=== PATIENT | male | born 1965 | race Caucasian/White ===

== ENCOUNTER → 2016-12-01 | Outpatient (CLI) | payer OTHER ==
[2016-12-01 10:49] LABS: CH 32.8; HCT 37.9 % (39.0-53.0); HDW 2.79; HGB 13.1 gm/dL (13.0-17.5); MCH 33.5 pg (25.0-35.0); MCHC 34.5 g/dL (31.0-37.0); Mean Platelet Volume 8.2; RBC 3.91 m/uL (4.30-5.90); RDW 13.7 % (11.5-15.5)
[2016-12-01 11:08] LABS: ALT 31 U/L (21-72); AST 18 U/L (17-59); Alkaline Phosphatase 81 U/L (38-126); Anion Gap 11 mmol/L; Blood Urea Nitrogen 12 mg/dL (9-20); Calcium 9.5 mg/dL (8.4-10.2); Carbon Dioxide 25 mmol/L (22-30); Chloride 105 mmol/L (98-107); Cholesterol 147 mg/dL (<200); Glucose 97 mg/dL (74-99); HDL Cholesterol 46 mg/dL (40-60); Non-African American GFR(MDRD) 53 (>60 ml/min/1.73 sqM); Potassium 3.8 mmol/L (3.5-5.1); Sodium 141 mmol/L (137-145); Total Bilirubin 0.6 mg/dL (0.2-1.3); Total Protein 7.2 g/dL (6.3-8.2); Triglycerides 117 mg/dL (<150)
== END | disposition home or self-care (01) ==
LOC: LABWHC1 10:18
PROVIDERS: ATTEND Internal Medicine
DX: E78.2 Mixed hyperlipidemia (principal); K21.0 Gastro-esophageal reflux disease with esophagitis; I11.9 Hypertensive heart disease without heart failure
CPT/HCPCS: 36415; 80053; 80061; 85027

== ENCOUNTER → 2017-01-20 | Outpatient (CLI) | payer OTHER ==
[2017-01-20 13:18] LABS: Anion Gap 11 mmol/L; Blood Urea Nitrogen 19 mg/dL (9-20); Calcium 9.6 mg/dL (8.4-10.2); Carbon Dioxide 25 mmol/L (22-30); Chloride 106 mmol/L (98-107); Glucose 107 mg/dL (74-99); Non-African American GFR(MDRD) 58 (>60 ml/min/1.73 sqM); Potassium 4.8 mmol/L (3.5-5.1); Sodium 142 mmol/L (137-145)
[2017-01-20 13:20] LABS: Basophils % (A) 1 %; CH 32.7; CHCM 33.3; Eosinophils % (A) 4 %; HCT 43.9 % (39.0-53.0); HDW 2.48; HGB 14.3 gm/dL (13.0-17.5); Luc % (Auto) 2; Lymphocytes # (A) 1.7 k/uL (1.0-4.8); Lymphocytes % (A) 17 %; MCH 32.1 pg (25.0-35.0); MCHC 32.5 g/dL (31.0-37.0); MCV 98.8 fL (80.0-100.0); Mean Platelet Volume 6.8; Monocytes # (A) 0.5 k/uL (0-1.0); Monocytes % (A) 5 %; Neutrophils # (A) 6.9 k/uL (1.3-7.7); Neutrophils % (A) 71 %; RBC 4.44 m/uL (4.30-5.90); RDW 13.4 % (11.5-15.5); WBC 9.8 k/uL (3.8-10.6); WBC (Perox) 9.86
[2017-01-20 13:21] LABS: Basophils # (A) 0.1 k/uL (0-0.2); Eosinophils # (A) 0.4 k/uL (0-0.7); Luc # (Auto) 0.21
[2017-01-20 13:22] LABS: Appearance,Urine Clear (Clear); Bilirubin,Urine Negative (Negative); Glucose,Urine (UA) Negative (Negative); Ketones,Urine Negative (Negative); Leukocyte Esterase,Urine Negative (Negative); Mucus,Urine Occasional /hpf; Nitrite,Urine Negative (Negative); Particle Count 2272; Protein,Urine Negative (Negative); RBC,Urine 4 /hpf (0-5); Specific Gravity,Urine 1.015 (1.001-1.035); UA Billing (MACRO vs. MICRO) MICRO; Urobilinogen,Urine <2.0 mg/dL (<2.0); WBC,Urine 1 /hpf (0-5)
[2017-01-20 13:23] LABS: Partial Thromboplastin Time 24.4 sec (22.0-30.0); Prothrombin Time 10.6 sec (9.0-12.0)
== END | disposition home or self-care (01) ==
LOC: LABWHC1 12:24
PROVIDERS: ATTEND Internal Medicine
DX: Z01.812 Encounter for preprocedural laboratory examination (principal)
CPT/HCPCS: 36415; 80048; 81001; 85025; 85610; 85730

== ENCOUNTER → 2017-05-06 | Outpatient (CLI) | payer OTHER ==
--- NOTE | 2017-05-06 09:21 | XR ---
EXAMINATION TYPE: XR chest 2V DATE OF EXAM: 05/06/2017 COMPARISON: Prior chest x-ray 03/03/2015 HISTORY: Wellness check TECHNIQUE: Frontal and lateral views of the chest are obtained. FINDINGS: There is no focal air space opacity, pleural effusion, or pneumothorax seen. The cardiac silhouette size is within normal limits. NG tube has been removed. Lung volumes are prominent which c ould be indicative of COPD. Postop changes noted to the anterior abdominal wall. The osseous structur es are intact. IMPRESSION: No acute cardiopulmonary process.
[2017-05-06 09:22] LABS: CH 32.3; CHCM 34.1; HDW 2.56; HGB 13.9 gm/dL (13.0-17.5); MCH 32.4 pg (25.0-35.0); MCV 95.3 fL (80.0-100.0); Mean Platelet Volume 6.9; RDW 13.7 % (11.5-15.5); WBC 11.1 k/uL (3.8-10.6)
[2017-05-06 10:34] LABS: ALT 31 U/L (21-72); AST 23 U/L (17-59); Alkaline Phosphatase 106 U/L (38-126); Anion Gap 9 mmol/L; Blood Urea Nitrogen 14 mg/dL (9-20); Calcium 9.3 mg/dL (8.4-10.2); Carbon Dioxide 24 mmol/L (22-30); Chloride 105 mmol/L (98-107); Cholesterol 147 mg/dL (<200); Glucose 100 mg/dL (74-99); HDL Cholesterol 44 mg/dL (40-60); Non-African American GFR(MDRD) 58 (>60 ml/min/1.73 sqM); Potassium 4.2 mmol/L (3.5-5.1); Sodium 138 mmol/L (137-145); Total Bilirubin 0.4 mg/dL (0.2-1.3); Total Protein 6.6 g/dL (6.3-8.2)
[2017-05-06 10:55] LABS: Prostate Specific Antigen 0.59 ng/mL (0.00-4.00)
== END | disposition home or self-care (01) ==
LOC: RADXRMAIN 08:32
PROVIDERS: ATTEND Internal Medicine
DX: Z00.00 Encounter for general adult medical examination without abnormal findings (principal); E78.2 Mixed hyperlipidemia; K21.0 Gastro-esophageal reflux disease with esophagitis; N40.0 Benign prostatic hyperplasia without lower urinary tract symptoms; I11.9 Hypertensive heart disease without heart failure
CPT/HCPCS: 36415; 71020; 80053; 80061; 82272; 84153; 84439; 84443; 85027

== ENCOUNTER 2017-09-15 10:07 | Emergency (ER) | payer OTHER ==
[2017-09-15] MEDS ORDERED: IBUPROFEN 800 MG TAB PO STA (10:20)
--- NOTE | 2017-09-15 10:24 | ED ---
Chest Pain HPI - General Chief Complaint: Chest Pain Stated Complaint: Chest pain Time Seen by Provider: 09/15/17 10:13 Source: patient, RN notes reviewed Mode of arrival: wheelchair Limitations: no limitations - History of Present Illness Initial Comments: This is a 52-year-old male with a history of heart disease a [place] bypass 2 years ago who states that about a week ago he coughed and try to swallow the same time and felt a popping sensation in the right side of his chest he states that when he got this morning he had a lump in this area and increased pain he did take some of his home pain medication OxyContin he states the pain is still 78/10 in severity. He took the pain medication well for have hours prior to admission. He denies any fevers chills nausea vomiting sweats no overt shortness of breath he does have an occasional cough no abdominal pain no other symptoms at this time MD Complaint: chest pain - Related Data Home Medications Medication Instructions Recorded Confirmed Benazepril HCl 20 mg PO DAILY 08/10/14 05/24/15 FLUoxetine HCL [PROzac] 40 mg PO HS 08/10/14 05/24/15 amLODIPine [Norvasc] 10 mg PO DAILY 08/10/14 05/24/15 Atorvastatin [Lipitor] 40 mg PO DAILY 03/02/15 05/24/15 clonazePAM [KlonoPIN] 1 mg PO HS 03/02/15 05/24/15 oxyCODONE-APAP 5-325MG [Percocet 1 tab PO Q4H PRN 03/02/15 05/24/15 5-325 mg] Previous Rx's Medication Instructions Recorded Ferrous Sulfate [Feosol] 325 mg PO DAILY #60 tab 03/07/15 Omeprazole 40 mg PO AC-BRKFST #30 cap 03/07/15 Ibuprofen 800 mg PO Q6HR PRN #20 tablet 09/15/17 Allergies Allergy/AdvReac Type Severity Reaction Status Date / Time No Known Allergies Allergy Verified 09/15/17 10:12 Review of Systems ROS Statement: Those systems with pertinent positive or pertinent negative responses have been documented in the HPI. ROS Other: All systems not noted in ROS Statement are negative. Past Medical History Past Medical History: Asthma, Chest Pain / Angina, COPD, GERD/Reflux, GI Bleed, Hyperlipidemia, Hypertension, Osteoarthritis (OA), Vascular Disorder Additional Past Medical History / Comment(s): Peripheral vascular disease, ASHD, recent Hx. of stomach ulcer and GI bleed. Currently has a hernia. Chronic back pain. History of Any Multi-Drug Resistant Organisms: None Reported Past Surgical History: Heart Catheterization, Hernia Repair Additional Past Surgical History / Comment(s): aortogram 08/17/14, aortobifem bypass 09/2014, bilateral inguinal hernia repairs. Past Anesthesia/Blood Transfusion Reactions: No Reported Reaction Additional Past Anesthesia/Blood Transfusion Reaction / Comment(s): Pt has recieved blood post operatively before. He is currently recieving blood. Past Psychological History: Anxiety, Depression Smoking Status: Current every day smoker Past Alcohol Use History: None Reported Past Drug Use History: None Reported - Past Family History Father Family Medical History: Cancer General Exam - General Exam Comments Initial Comments: This is a well little pulmonary awake alert oriented 3 male Limitations: no limitations General appearance: alert, in no apparent distress Head exam: Present: atraumatic, normocephalic, normal inspection Eye exam: Present: normal appearance, PERRL, EOMI. Absent: scleral icterus, conjunctival injection, periorbital swelling ENT exam: Present: normal exam, mucous membranes moist Neck exam: Present: normal inspection. Absent: tenderness, meningismus, lymphadenopathy Respiratory exam: Present: normal lung sounds bilaterally, chest wall tenderness (Tenderness palpation of the anterior costochondral margin minimal evidence for swelling at this time. No step-off or crepitation no discoloration.). Absent: respiratory distress, wheezes, rales, rhonchi, stridor Cardiovascular Exam: Present: regular rate, normal rhythm, normal heart sounds. Absent: systolic murmur, diastolic murmur, rubs, gallop, clicks GI/Abdominal exam: Present: soft, normal bowel sounds, other (Well-healed midline surgical scar). Absent: distended, tenderness, guarding, rebound, rigid , bruit, pulsatile mass, hernia Extremities exam: Present: normal inspection, full ROM, normal capillary refill. Absent: tenderness, pedal edema, joint swelling, calf tenderness Back exam: Present: normal inspection Neurological exam: Present: alert, oriented X3, CN II-XII intact Psychiatric exam: Present: normal affect, normal mood Skin exam: Present: warm, dry, intact, normal color. Absent: rash Course Vital Signs 09/15/17 10:08 Temperature 97.2 F L Pulse Rate 77 Respiratory 18 Rate Blood Pressure 107/60 O2 Sat by Pulse 96 Oximetry Chest Pain MDM - MDM I did review the imaging and reports no acute findings. Patient's presentation consistent with chest wall strain and costochondritis. I did have a long discussion with him and his family regarding findings patient will be discharged with appropriate anti-inflammatory medication. Disposition Clinical Impression: Costalchondritis, Chest wall syndrome Disposition: HOME SELF-CARE Condition: Good Instructions: Costochondritis (ED) Prescriptions: Ibuprofen 800 mg PO Q6HR PRN #20 tablet PRN Reason: Pain Referrals: David Feliz MD [Primary Care Provider] - 1-2 days
--- NOTE | 2017-09-15 10:49 | XR ---
EXAMINATION TYPE: XR ribs RT w pa chest xray DATE OF EXAM: 09/15/2017 CLINICAL HISTORY: Fall with right rib pain and palpable lump. TECHNIQUE: Single frontal view of the chest is obtained. Frontal and oblique images of the right ribs were also obtained. COMPARISON: 05/06/2017 FINDINGS: There is no focal air space opacity, pleural effusion, or pneumothorax seen. The cardiac silhouette size is within normal limits. The osseous structures are intact. Mild right acromioclavi cular arthropathy is noted. No displaced rib fracture is seen. Postsurgical changes from prior hernia repair incidentally noted. IMPRESSION: No acute cardiopulmonary process. No displaced rib fracture.
[2017-09-16 23:00] VITALS: BP 97/56; PULSE 88; RESP 18; TEMP 97.7
== END 2017-09-15 11:16 | disposition home or self-care (01) ==
LOC: EC 10:07
DX: M94.0 Chondrocostal junction syndrome [Tietze] (principal); E78.5 Hyperlipidemia, unspecified; I10 Essential (primary) hypertension; F32.9 Major depressive disorder, single episode, unspecified; F41.9 Anxiety disorder, unspecified; F17.200 Nicotine dependence, unspecified, uncomplicated; Z95.5 Presence of coronary angioplasty implant and graft; Z79.899 Other long term (current) drug therapy
CPT/HCPCS: 99284

== ENCOUNTER → 2017-12-23 | Outpatient (CLI) | payer OTHER ==
--- NOTE | 2017-12-23 21:58 | MR ---
EXAMINATION TYPE: MR oneyda/bonita wo con DATE OF EXAM: 12/23/2017 9:23 PM COMPARISON: 02/22/2015 HISTORY: Lower/mid back pain x several years Multiplanar MultiSpin echo imaging of the thoracic spine was performed. Disc spaces: There is mild to moderate decreased signal and loss of height involving the T4-T9-10. Po sterior disc bulge at each of these levels greatest at T7-8 where a small protrusion is present. Ther e is mild effacement of the ventral thecal sac without disc herniation or central stenosis. Spinal canal: No evidence for canal stenosis. No intrinsic or extrinsic lesion. Thoracic spinal cord: Thoracic spinal cord is of normal caliber and signal. Paraspinal soft tissues: No evidence for paraspinal mass. No destructive lesions seen. Vertebral segments: No evidence for fracture or bony lesion. Generative endplate marrow change at T7 -T8. Scattered ventral spondylosis. IMPRESSION: 1. Degenerative disc disease and disc bulging as discussed. 2. Stable small T7-T8 protrusion. EXAMINATION TYPE: MR call/bonita wo con DATE OF EXAM: 12/23/2017 9:23 PM COMPARISON: 11/18/2013 HISTORY: Lower/mid back pain x several years Multiplanar, MultiSpin echo imaging of the lumbar spine was performed. There appears to be a transitional lumbar vertebral segment with partial lumbarization of S1 with mann imentary S1-S2 disc. Prior to any scheduled intervention radiographic correlation is advised. L1-L2: Normal disc appearance without desiccation. No herniation, protrusion or disc bulging. No ca nal stenosis is present. Foramina are patent bilaterally. L2-L3: Normal disc appearance without desiccation. No herniation, protrusion or disc bulging. No ca nal stenosis is present. Foramina are patent bilaterally. L3-L4: Mild disc desiccation noted. Mild posterior disc bulge. No herniation protrusion or central st enosis. Foramina are patent. L4-L5: Moderate disc desiccation noted. Posterocentral disc bulge effaces the ventral thecal sac. No evidence for central stenosis or lateral recess stenosis. Mild left greater than right foraminal encr oachment. L5-S1: Moderate disc desiccation noted. Posterocentral disc bulge effaces the ventral thecal sac. No evidence for central stenosis or lateral recess stenosis. Mild left greater than right foraminal encr oachment. Lumbar segments are intact. No paraspinal masses are identified. Conus medullaris has a normal appe arance. IMPRESSION: 1. Stable degenerative disc disease and disc bulging as noted above.
== END | disposition home or self-care (01) ==
LOC: RADMRIMAIN 20:08
PROVIDERS: ATTEND Physical Medicine & Rehabilitation
DX: M51.25 Other intervertebral disc displacement, thoracolumbar region (principal); M51.35 Other intervertebral disc degeneration, thoracolumbar region
CPT/HCPCS: 72146; 72148

== ENCOUNTER → 2018-02-22 | Outpatient (CLI) | payer OTHER ==
--- NOTE | 2018-02-22 14:28 | MR ---
MRI CERVICAL SPINE: CLINICAL HISTORY: Bilateral hand numbness per order. Weakness in hands and arms and loss of sensation per patient. TECHNIQUE: Multiplanar, multisequence imaging of the cervical spine is performed without IV contrast. COMPARISON: . Cervical spine x-ray August 17, 2017. FINDINGS: Sagittal images of the cervical spine show the craniocervical junction to appear within nor mal limits. The cervical and upper thoracic spinal cord is normal in course, caliber, and signal. V ertebral alignment is anatomic. The vertebral body heights are normal. There is mild multilevel dis c space narrowing. Posterior spur disc complex effaces anterior thecal sac C3-C4 level on sagittal im ages. Posterior disc herniations are effacing anterior thecal sac C5-C6 and C6-C7 levels on sagittal images. The bone marrow signal intensity is within normal limits. No significant spurring is present. Axial images show the C2-C3 level to appear within normal limits. Axial images at C3-C4 level show left paracentral spur disc complex effacing anterolateral thecal sac , bilateral neural foramina are mildly narrowed. Axial images at C4-C5 level show broad-based disc protrusion and uncovertebral facet arthropathy caus ing mild effacement of the anterior thecal sac and moderate to advanced bilateral neural foraminal na rrowing near axial image 32. Axial images at C5-C6 level show posterior broad-based lobulated disc protrusion effacing anterior th ecal sac and causing moderate bilateral neural foraminal narrowing. Axial images at C6-C7 level show broad-based posterior disc protrusion effacing anterior thecal sac a nd causing moderate to advanced right greater than left neural foraminal narrowing. Axial images at C7-T1 level are felt within normal limits. IMPRESSION: Multilevel degenerative changes in the cervical spine as detailed above.
== END ==
LOC: RADMRIMAIN 13:50
PROVIDERS: ATTEND Psychiatry & Neurology Neurology
DX: M46.02 Spinal enthesopathy, cervical region (principal); M50.221 Other cervical disc displacement at C4-C5 level
CPT/HCPCS: 72141

== ENCOUNTER 2018-04-28 12:03 | Day surgery (SDC) | payer OTHER ==
[2018-04-20 15:31] VITALS: BMI 26.6
[~2018-04-28 12:03] MED LIST: ALPRAZolam 0.25 MG TAB PO PRN; ASPIRIN 325 MG TAB PO STA; SODIUM CHLORIDE 0.9% 1,000 ML in EMPTY BAG 1 BAG IV ONE
[2018-04-28 14:04] VITALS: RESP 20; TEMP 98
[2018-04-28 14:57] LABS: Calcium 8.8 mg/dL (8.4-10.2)
[2018-04-28 14:58] LABS: Potassium 3.4 mmol/L (3.5-5.1)
[2018-04-28] MEDS ORDERED: MIDAZOLAM 2 MG/2 ML VIAL IVP ONE (16:36)
[2018-04-28] MEDS ORDERED: LIDOCAINE 1% (PF) 10MG/ML VIAL SQ ONE (16:36)
[2018-04-28] MEDS ORDERED: IOPAMIDOL-250 100ML BTL INTRAARTER ONE (16:51)
[2018-04-28 17:28] LABS: Basophils % (A) 0 %; Eosinophils # (A) 0.3 k/uL (0-0.7); Eosinophils % (A) 3 %; HCT 42.1 % (39.0-53.0); HGB 14.7 gm/dL (13.0-17.5); Lymphocytes # (A) 1.7 k/uL (1.0-4.8); Lymphocytes % (A) 17 %; MCH 32.5 pg (25.0-35.0); MCHC 34.9 g/dL (31.0-37.0); MCV 93.2 fL (80.0-100.0); Monocytes # (A) 0.8 k/uL (0-1.0); Monocytes % (A) 8 %; Neutrophils # (A) 7.1 k/uL (1.3-7.7); Neutrophils % (A) 71 %; Platelet Count 354 k/uL (150-450); RBC 4.51 m/uL (4.30-5.90); RDW 14.7 % (11.5-15.5)
[2018-04-28 19:47] VITALS: BP 133/84; PULSE 66
--- NOTE | 2018-04-28 21:41 | AN ---
ANGIOGRAPHY REPORT DATE OF SERVICE: April 28, 2018. PERFORMING PHYSICIAN: Fransisco Portillo MD, video and sound recorder. PROCEDURE PERFORMED: 1. Abdominal aortogram. 2. Bilateral lower extremity runoff. INDICATION: This is a pleasant 52-year-old gentleman with known history of peripheral artery disease and prior aortobifem was experiencing bilateral lower extremities intermittent claudication. APPROACH: Right brachial artery. COMPLICATION: None. LEVEL OF SEDATION: Moderate. Sedation length of 17 minutes. PROCEDURE DESCRIPTION: After obtaining an informed consent, the patient was brought to the cardiac bicycle racer. The right brachial artery was cannulated using micropuncture technique, and I placed a 5-Lebanese sheath in the right brachial artery. After that, I did an abdominal aortogram and bilateral lower extremity runoff. I did use 5-Lebanese pigtail catheter. The procedure was completed without any complication. SELECTIVE PERIPHERAL ANGIOGRAM: 1. The aorta appeared to have mild disease only. 2. The aortobifem bypass is widely patent. 3. The femoral arteries: The right and left femoral arteries appeared to be angiographically normal. 4. Profunda: The right and the profunda are patent. 5. SFA: The right and left SFA are patent. 6. Popliteal: The right and left popliteal are normal. 7. Below the knee: There are 3 vessels runoffs below the knee bilaterally. CONCLUSION: Patent aortobifem bypasses. POSTPROCEDURE MANAGEMENT: 1. Medical treatment. 2. Follow up with the patient. MMODL / IJN: [id number] /
--- NOTE | 2018-04-29 09:05 | IR ---
EXAMINATION TYPE: IR angio abdominal w runoff DATE OF EXAM: 04/28/2018 COMPARISON: NONE HISTORY: Peripheral vascular occlusive disease. Fluoroscopy was provided to the referring clinician. See dictated report from cardiology.
== END 2018-04-28 21:46 | disposition home or self-care (01) ==
LOC: CATHCVL 12:03 → 3OBS 16:59 → CATHCVL 21:46
PROVIDERS: ATTEND Internal Medicine Interventional Cardiology
DX: I70.213 Atherosclerosis of native arteries of extremities with intermittent claudication, bilateral legs (principal); I25.10 Atherosclerotic heart disease of native coronary artery without angina pectoris; I10 Essential (primary) hypertension
CPT/HCPCS: 36200; 75625; 75716; 80048; 85025; C1769 ×2; C1894; J2250; J2001; Q9966

== ENCOUNTER → 2018-06-15 | Outpatient (CLI) | payer OTHER ==
[2018-06-15 15:39] LABS: Calcium 9.2 mg/dL (8.4-10.2); Potassium 4.3 mmol/L (3.5-5.1)
[2018-06-15 16:06] LABS: Prostate Specific Antigen 0.85 ng/mL (0.00-4.00)
== END | disposition home or self-care (01) ==
LOC: LABWHC1 14:30
PROVIDERS: ATTEND Nurse Practitioner Adult Health
DX: Z00.00 Encounter for general adult medical examination without abnormal findings (principal); E87.6 Hypokalemia; N40.0 Benign prostatic hyperplasia without lower urinary tract symptoms; E78.5 Hyperlipidemia, unspecified; I10 Essential (primary) hypertension
CPT/HCPCS: 36415; 80048; 80061; 84153

== ENCOUNTER → 2018-08-09 | Outpatient (CLI) | payer OTHER ==
[2018-08-09 16:03] LABS: T4, Free (Free Thyroxine) 1.1 ng/dL (0.80-1.80)
== END ==
LOC: LABWHC1 08:47
PROVIDERS: ATTEND Psychiatry & Neurology Neurology
DX: G25.2 Other specified forms of tremor (principal)
CPT/HCPCS: 36415; 84439; 84443

== ENCOUNTER → 2018-08-09 | Outpatient (CLI) | payer OTHER ==
--- NOTE | 2018-08-09 11:03 | XR ---
EXAMINATION TYPE: XR chest 2V DATE OF EXAM: 08/09/2018 COMPARISON: 09/15/2017 HISTORY: 52-year-old male with chest pain TECHNIQUE: Frontal and lateral views FINDINGS: Heart normal size. Aorta and pulmonary vasculature are within normal limits. Strandy atelectasis at t he left base. Mild interstitial prominence has a chronic appearance. No consolidation or pleural effu balta. IMPRESSION: Chronic changes without acute cardiopulmonary process.
== END ==
LOC: RADXRMAIN 09:24
PROVIDERS: ATTEND Internal Medicine
DX: R07.9 Chest pain, unspecified (principal); R07.82 Intercostal pain
CPT/HCPCS: 71046

== ENCOUNTER → 2018-08-13 | Outpatient (CLI) | payer OTHER ==
--- NOTE | 2018-08-13 10:08 | MR ---
EXAMINATION TYPE: MR brain wo con DATE OF EXAM: 08/13/2018 COMPARISON: NONE HISTORY: Coarse Tremors T1-weighted sagittal, T2, FLAIR, and diffusion axial, and T2 coronal coronal views of the brain are s ubmitted. There is no evidence of acute ischemia. The ventricles, basal cisterns, and sulci overlying the conv exities are consistent with the patient's age. There is no mass effect. Craniocervical junction maintained. Sella turcica has a normal appearance. Changes of chronic sinusit is noted. No cerebellopontine angle mass. There are numerous bilateral areas of abnormal signal scattered throu ghout the white matter bilaterally all measuring 5 mm or less. No lesions perpendicular to the ventri cular system. Occasional subcortical lesion seen. Greater than 30 lesions seen. Changes of chronic sinusitis noted. Cerebellar tonsils are low-lying in position. Small amount of flu id is seen surrounding the optic nerves which is nonspecific. Benign-appearing subcentimeter cyst in the posterior nasopharynx. IMPRESSION: 1. No acute intracranial process. Diffuse nonspecific white matter changes. Differential diagnosis in cludes remote microvascular ischemia. Demyelinating process not entirely excluded correlate clinicall y. 2. Small amount of fluid surrounding the optic nerves is nonspecific. Occasionally can be seen with i ncreased intracranial pressure. Correlate.
== END ==
LOC: RADMRIMAIN 09:02
PROVIDERS: ATTEND Psychiatry & Neurology Neurology
DX: R90.89 Other abnormal findings on diagnostic imaging of central nervous system (principal)
CPT/HCPCS: 70551

== ENCOUNTER 2019-01-04 08:26 | Day surgery (SDC) | payer OTHER ==
[2018-12-30 12:14] VITALS: BMI 28.0
[~2019-01-04 08:26] MED LIST changes: -ALPRAZolam 0.25 MG TAB PO PRN; -ASPIRIN 325 MG TAB PO STA; +LACTATED RINGERS 1,000 ML IV SCH; -SODIUM CHLORIDE 0.9% 1,000 ML in EMPTY BAG 1 BAG IV ONE
[2019-01-04 08:36] VITALS: RESP 16; TEMP 98.2
[2019-01-04] MEDS ORDERED: LIDOCAINE 1% 20 ML VIAL (10MG/ML) FOR IV START INTRADERMA ONE (08:48)
--- NOTE | 2019-01-04 09:20 | P.PCN ---
Date of Procedure: 01/04/19 Procedure(s) Performed: Preoperative diagnosis: Multiple sclerosis Post operative diagnoses: Multiple sclerosis Anesthesia= moderate sedation with Versed 2 mg and fentanyl 100 g, and local infiltration with lidocaine 1% 2 mL. Condition: stable Complication: none. Description of the procedure procedure risk and benefits discussed with the patient and family, consent signed. Patient and the procedure area placed in sitting position back prepped with chlorhexidine 3 times been local infiltration of the skin and subcutaneous tissue with lidocaine 1% 2 mL for skin and subcu interstitial frustrations at L4 5 levels then 22-gauge Quincke-type needle advanced slowly at L4- 5 interlaminar space there was positive cerebrospinal fluid which was clear, no heme, no paresthesia ,total of 8 ML of clear cerebrospinal fluid collected in 4 different tubes 2 mL in each, then the needle removed and a Band-Aid applied and patient tolerated the procedure well without any complications.
[2019-01-04] MEDS ORDERED: IV FLUID CONTINUATION 1,000 ML IV ONE (09:24)
[2019-01-04] MEDS ORDERED: LACTATED RINGERS 1,000 ML IV ONE (10:02)
[2019-01-04 10:30] VITALS: BP 114/66; PULSE 61
== END 2019-01-04 11:25 | disposition home or self-care (01) ==
LOC: ORPAIN 08:26
PROVIDERS: ATTEND Specialist
DX: G35 Multiple sclerosis (principal); I25.10 Atherosclerotic heart disease of native coronary artery without angina pectoris; I10 Essential (primary) hypertension
CPT/HCPCS: 88108; 62270; J2250; J3010; 99152

== ENCOUNTER → 2019-02-11 | Outpatient (CLI) | payer OTHER ==
[2019-02-11 23:30] LABS: DNA Double-Stranded Indetermin (NEGATIVE)
[2019-02-14 14:20] LABS: APTT 33 Sec(s) (<43); Dilute Russell Viper Venom 42 Sec(s) (<44)
== END | disposition home or self-care (01) ==
LOC: LABWHC1 16:20
PROVIDERS: ATTEND Psychiatry & Neurology Neurology
DX: G25.0 Essential tremor (principal)
CPT/HCPCS: 36415; 85613; 85730; 86225

== ENCOUNTER → 2019-05-30 | Outpatient (CLI) | payer OTHER ==
[2019-05-31 00:40] LABS: ALT 20 U/L (10-49); AST 24 U/L (14-35); Albumin/Globulin Ratio 2.15 (1.60-3.17); Alkaline Phosphatase 110 U/L (41-126); Bilirubin, Conjugated <0.20 mg/dL (0.20-0.40); Total Bilirubin 0.4 mg/dL (0.3-1.2); Total Protein 6.3 g/dL (6.2-8.2)
[2019-05-31 02:15] LABS: HIV 1 AB Non-Reactive (Non-Reactive); HIV AB P24 Non-Reactive (Non-Reactive); HIV P24 AG Non-Reactive (Non-Reactive)
== END | disposition home or self-care (01) ==
LOC: LABWHC1 15:48
PROVIDERS: ATTEND Family Medicine
DX: I10 Essential (primary) hypertension (principal); F41.8 Other specified anxiety disorders; R74.8 Abnormal levels of other serum enzymes
CPT/HCPCS: 36415; 80076; 82390; 82728; 83516; 83540; 83550; 86038; 86780; 87340; 87390

== ENCOUNTER 2019-07-11 15:01 | Emergency (ER) | payer OTHER ==
--- NOTE | 2019-07-11 15:26 | ED ---
General Adult HPI - General Chief complaint: Syncope Stated complaint: URI, Back Pain Time Seen by Provider: 07/11/19 15:15 Source: patient Mode of arrival: ambulatory Limitations: no limitations - History of Present Illness Initial comments: Dictation was produced using Stem dictation software. please excuse any grammatical, word or spelling errors. Chief Complaint: This 53-year-old male who presents with right back pain. History of Present Illness: Now he recently was diagnosed with URI. Patient was given antibiotics. Is currently on Augmentin prescribed by his primary care physician. Patient states he had a significant coughing fit yesterday causing him to feel faint while to the ground. Patient states that after that event he had significant right back pain. States worse when he coughs, moves or whenever its palpated. Patient has any trauma. States that when he syncopized that he fell onto the grass. The ROS documented in this emergency department record has been reviewed and confirmed by me. Those systems with pertinent positive or negative responses have been documented in the HPI. All other systems are other negative and/or noncontributory. PHYSICAL EXAM: General Impression: Alert and oriented x3, not in acute distress HEENT: Normocephalic atraumatic, extra-ocular movements intact, pupils equal and reactive to light bilaterally, mucous membranes moist. Cardiovascular: Heart regular rate and rhythm, S1&S2 audible, no murmurs, rubs or gallops Chest: Mild wheezing Abdomen: Bowel sounds present, abdomen soft, non-tender, non-distended, no organomegaly Musculoskeletal: Pulses present and equal in all extremities, no peripheral edema, exquisite tenderness with palpation to the right posterior rib angles in the right posterior back at the level of T8 to T12. Motor: no focal deficits noted Neurological: CN II-XII grossly intact, no focal motor or sensory deficits noted Skin: Intact with no visualized rashes Psych: Normal affect and mood ED course: 53-year-old male presents with right back pain. He states that his symptoms started after coughing forcefully. Physical examination shows exquisite tenderness to palpation over the right posterior back. Vital signs upon arrival are within acceptable limits. Patient given Toradol and Lidoderm patch. X-rays of the chest and ribs are unremarkable. Discussed these results with patient. He is feeling better at bedside. Patient clear for discharge. Told to continue taking his antibiotics to follow-up with his PCP. EKG interpretation: Ventricular rate 57, sinus regular,. Interval 136, care is 80, QTc 410. No WI prolongation, no QTC prolongation, no ST or T-wave changes noted. Overall, this EKG is unremarkable - Related Data Home Medications Medication Instructions Recorded Confirmed FLUoxetine HCL [PROzac] 80 mg PO DAILY 08/10/14 07/11/19 amLODIPine [Norvasc] 10 mg PO DAILY 08/10/14 07/11/19 Atorvastatin [Lipitor] 80 mg PO DAILY 03/02/15 07/11/19 Primidone [Mysoline] 50 mg PO BID 09/15/17 07/11/19 Potassium Chloride 10 meq PO DAILY 12/30/18 07/11/19 Amoxic-Pot Clav 875-125Mg 1 tab PO BID 07/11/19 07/11/19 [Augmentin 875-125] Baclofen [Lioresal] 10 mg PO BID 07/11/19 07/11/19 Ergocalciferol (Vitamin D2) 50,000 unit PO MO 07/11/19 07/11/19 [Drisdol] Fluticasone Nasal [place] [Flonase 1 - 2 spr EA NOSTRIL DAILY 07/11/19 07/11/19 Nasal [place]] busPIRone HCl [Buspar] 5 mg PO BID 07/11/19 07/11/19 Previous Rx's Medication Instructions Recorded Omeprazole 40 mg PO AC-BRKFST #30 cap 03/07/15 Allergies Allergy/AdvReac Type Severity Reaction Status Date / Time No Known Allergies Allergy Verified 07/11/19 15:57 Review of Systems ROS Statement: Those systems with pertinent positive or pertinent negative responses have been documented in the HPI. ROS Other: All systems not noted in ROS Statement are negative. Past Medical History Past Medical History: Asthma, Chest Pain / Angina, COPD, GERD/Reflux, GI Bleed, Hearing Disorder / Deafness, Hyperlipidemia, Hypertension, Musculoskeletal Disorder, Neurologic Disorder, Osteoarthritis (OA), Prostate Disorder, Vascular Disorder Additional Past Medical History / Comment(s): PVD. ASHD. Hx of Stomach ulcer and GI bleed. Chronic Back Pain, HERNIATED & BULGING DISCS, STABLE PROTRUSION T7. RT KNEE PAIN, UNSTABLE OCC. TREMORS ARMS, RT EYAL. POSS BPH. OCC NT LT ARM, 1/2 NHAN FEET. "FREQ [employer]." PT STATES MRI SHOWED 30 LESIONS ON BRAIN History of Any Multi-Drug Resistant Organisms: None Reported Past Surgical History: Heart Catheterization, Hernia Repair Additional Past Surgical History / Comment(s): Aortogram 08/17/14, Aortobifem bypass 09/2014, bilateral inguinal hernia repairs. LT THUMB SURG. Past Anesthesia/Blood Transfusion Reactions: No Reported Reaction Additional Past Anesthesia/Blood Transfusion Reaction / Comment(s): Pt has recieved blood post operatively before. Past Psychological History: Anxiety, Depression Smoking Status: Current every day smoker Past Alcohol Use History: None Reported Past Drug Use History: Marijuana - Past Family History Mother Family Medical History: Cancer Father Family Medical History: Cancer General Exam Limitations: no limitations Course Vital Signs 07/11/19 15:03 Temperature 97.9 F Pulse Rate 75 Respiratory 18 Rate Blood Pressure 151/87 O2 Sat by Pulse 95 Oximetry Disposition Clinical Impression: Back strain Disposition: HOME SELF-CARE Condition: Good Instructions (If sedation given, give patient instructions): Acute Cough (ED) Is patient prescribed a controlled substance at d/c from ED?: No Referrals: Ivon Lo MD [Primary Care Provider] - 1-2 days Time of Disposition: 16:20
--- NOTE | 2019-07-11 16:10 | XR ---
EXAMINATION TYPE: XR chest 2V DATE OF EXAM: 07/11/2019 COMPARISON: 08/09/2013 INDICATION: Rib pain TECHNIQUE: Frontal and lateral views of the chest are obtained. FINDINGS: The heart size is normal. The pulmonary vasculature is normal. The lungs are clear. No pneumothorax is evident. IMPRESSION: 1. No acute pulmonary process.
--- NOTE | 2019-07-11 16:11 | XR ---
EXAMINATION TYPE: XR ribs RT DATE OF EXAM: 07/11/2019 COMPARISON: None HISTORY: Right rib pain TECHNIQUE: Right ribs are examined in 2 projections. FINDINGS: No acute fractures are identified. No pneumothorax is evident. IMPRESSION: 1. Normal 2 view right RIBS
[2019-07-11] MEDS ORDERED: LIDOCAINE 5% PATCH TOPICAL STA (16:12)
[2019-07-11] MEDS ORDERED: KETOROLAC 30 MG/ML 1 ML VIAL IM STA (16:12)
[2019-07-11 16:34] VITALS: BP 137/87; PULSE 62; RESP 16; TEMP 98.3
== END 2019-07-11 16:30 | disposition home or self-care (01) ==
LOC: EC 15:01
DX: S39.012A Strain of muscle, fascia and tendon of lower back, initial encounter (principal); J44.9 Chronic obstructive pulmonary disease, unspecified; I10 Essential (primary) hypertension; E78.5 Hyperlipidemia, unspecified; I25.10 Atherosclerotic heart disease of native coronary artery without angina pectoris; F41.9 Anxiety disorder, unspecified; F32.9 Major depressive disorder, single episode, unspecified; F17.200 Nicotine dependence, unspecified, uncomplicated; Z79.899 Other long term (current) drug therapy; Z79.51 Long term (current) use of inhaled steroids; X58.XXXA Exposure to other specified factors, initial encounter
CPT/HCPCS: 93005; 71100; 71046; 99283; 96372; J1885

== ENCOUNTER → 2020-01-26 | Outpatient (CLI) | payer OTHER ==
--- NOTE | 2020-01-26 10:00 | CT ---
EXAMINATION TYPE: CT brain wo con DATE OF EXAM: 01/26/2020 COMPARISON: None HISTORY: Left sided head pain with bilateral ear infections. CT DLP: 1343 mGycm Automated exposure control for dose reduction was used. Head CT performed using departmental protocol FINDINGS: There is no hemorrhage or hydrocephalus. Brain density is normal. The calvarium is intact. Paranasal sinuses and mastoid air cells as visualized are normal. IMPRESSION: NO SIGNIFICANT ABNORMALITIES EVIDENT.
== END | disposition home or self-care (01) ==
LOC: RADCTMAIN 09:12
PROVIDERS: ATTEND Family Medicine
DX: H92.02 Otalgia, left ear (principal)
CPT/HCPCS: 70450

== ENCOUNTER → 2020-03-07 | Outpatient (CLI) | payer OTHER ==
--- NOTE | 2020-03-07 20:07 | CT ---
EXAMINATION TYPE: CT sinus wo con DATE OF EXAM: 03/07/2020 COMPARISON: CT brain January 26, 2020. MRI brain August 13, 2018 HISTORY: Sinus congestion, left ear pain per order. Headaches with dizziness and vision changes per p atient. CT DLP: 722.1 mGycm. Automated Exposure Control for Dose Reduction was Utilized. TECHNIQUE: CT scan of the sinuses is performed without contrast, axial images are obtained, coronal r eformatted images are also reviewed. FINDINGS: The paranasal sinuses including the frontal, ethmoid, sphenoid, and maxillary sinuses bila terally are well-aerated without abnormal opacification. The ostiomeatal complex is patent bilateral ly on coronal image 33. Nasal septum remains slightly deviated to left of midline. Visualized portion of mastoid air cells show no abnormal opacification. The globes are intact bilate rally. Visualized portion of brain parenchyma is unremarkable. IMPRESSION: The sinuses are clear and the ostiomeatal complex is patent bilaterally. No significant change from prior studies.
== END | disposition home or self-care (01) ==
LOC: RADCTMAIN 19:40
PROVIDERS: ATTEND Family Medicine
DX: R09.81 Nasal congestion (principal); G89.29 Other chronic pain; H92.02 Otalgia, left ear
CPT/HCPCS: 70486

== ENCOUNTER → 2020-08-29 | Outpatient (CLI) | payer MEDICARE, OTHER ==
--- NOTE | 2020-08-30 07:16 | CT ---
EXAMINATION TYPE: CT chest wo con DATE OF EXAM: 08/29/2020 COMPARISON: Chest x-ray July 11, 2019 HISTORY: Concern for Lung ca. Current smoker. Pt c/o breathing issues CT DLP: 399 mGycm. Automated Exposure Control for Dose Reduction was Utilized. TECHNIQUE: CT scan of the thorax is performed without IV contrast. FINDINGS: LUNGS: [id number] underlying emphysematous change is redemonstrated. Mild anterior bibasilar li near scarring. No suspicious consolidation or groundglass opacity. No concerning pulmonary nodules or masses. No pleural effusion or pneumothorax is seen. MEDIASTINUM: Lack of IV contrast is noted to limit evaluation for mediastinal and especially hilar ad enopathy. There are no definitive greater than 1 cm hilar or mediastinal lymph nodes. No cardiomega ly or pericardial effusion is seen. Moderate three-vessel coronary artery calcification. OTHER: Focal moderate disc space narrowing and spurring to a peak of thoracic curvature T7-T8 level. Slight scoliotic curvature on coronal images. Coils from a ventral wall hernia repair surgery of uppe r abdomen anteriorly are partially imaged. IMPRESSION: [id number] emphysematous change without acute pulmonary process. No suspicious pulm onary nodules or masses noted.
== END | disposition home or self-care (01) ==
LOC: RADCTMAIN 15:59
PROVIDERS: ATTEND Family Medicine
DX: Z12.2 Encounter for screening for malignant neoplasm of respiratory organs (principal); J43.9 Emphysema, unspecified; Z72.0 Tobacco use
CPT/HCPCS: 71250

== ENCOUNTER → 2020-08-29 | Outpatient (CLI) | payer MEDICARE, OTHER ==
--- NOTE | 2020-08-29 22:41 | MR ---
EXAMINATION TYPE: MR brain wo/w con DATE OF EXAM: 08/29/2020 COMPARISON: CT brain January 16, 2020. Prior MRI brain August 13, 2018 HISTORY: Headaches TECHNIQUE: Multiplanar, multisequence images of the brain and brainstem is performed without and with IV contras t, utilizing 7 mL intravenous Gadavist . FINDINGS: Diffusion weighted images demonstrate no evidence of a recent infarct or other diffusion ab normality. There is no worrisome extra-axial fluid collection. The ventricular system and cisternal spaces are normal in size and appearance. The brain volume is age appropriate. Scattered foci of T2 hyperintensity are seen throughout the white matter bilaterally. Approximately 25-30 small scattered lesions are redemonstrated. Lesions remain nonspecific in appearance and distribution. No significan t change from prior MRI study. For reference two adjacent 4 mm lesions noted right frontal lobe axial image 17. Midline structures demonstrate normal morphology. The craniocervical junction appears within normal limits. Post contrast images demonstrate no abnormal enhancement. The dural venous sinuses appear pa tent. The visualized sinuses are clear and the globes are intact. IMPRESSION: [id number] nonspecific white matter changes redemonstrated. No significant change f rom prior MRI. No suspicious enhancement noted.
== END | disposition home or self-care (01) ==
LOC: RADMRIMAIN 16:06
PROVIDERS: ATTEND Ophthalmology
DX: R90.82 White matter disease, unspecified (principal)
CPT/HCPCS: 70553

== ENCOUNTER → 2021-01-31 | Outpatient (CLI) | payer MEDICARE, OTHER ==
--- NOTE | 2021-01-31 09:31 | CT ---
EXAMINATION TYPE: CT abdomen w con DATE OF EXAM: 01/31/2021 COMPARISON: None HISTORY: epigastric pain, reflux CT DLP: 349 mGycm CONTRAST: CT scan of the abdomen is performed with Oral Contrast and with IV Contrast, patient injected with 10 0 mL of Isovue 300. FINDINGS: LUNG BASES-: No visible nodule. No infiltrate. LIVER/GB: No calcified gallstones. No space occupying hepatic lesion. Biliary tree is of normal ca liber. PANCREAS: No inflammation. No distinct mass. SPLEEN: No splenic enlargement. No lesion seen. ADRENALS: No nodule. No thickening. KIDNEYS/BLADDER: No hydronephrosis. No nephrolithiasis. No distinct renal mass. Urinary bladder g rossly unremarkable. BOWEL: Normal appendix. Normal bowel caliber. No inflammation. LYMPH NODES: No greater than 1cm abdominal or pelvic lymph nodes are appreciated. AORTA: Aortic bypass graft noted. No complicating factors seen. OSSEOUS STRUCTURES: Degenerative changes thoracolumbar spine. OTHER: No significant additional abnormality is seen. IMPRESSION: 1. No significant abnormality appreciated.
== END | disposition home or self-care (01) ==
LOC: RADCTMAIN 07:40
PROVIDERS: ATTEND Family Medicine
DX: K21.9 Gastro-esophageal reflux disease without esophagitis (principal)
CPT/HCPCS: 74160; Q9967

== ENCOUNTER 2021-03-07 08:37 | Day surgery (SDC) | payer MEDICARE, OTHER ==
[2021-03-04 12:36] VITALS: BMI 22.1
[2021-03-07 09:00] VITALS: TEMP 98.4
[2021-03-07] MEDS ORDERED: PROPOFOL 10 MG/ML 20 ML VIAL IV ONE (09:10)
[2021-03-07] MEDS ORDERED: LIDOCAINE 1% INJ 10MG/ML (20 ML MDV) ONE (09:10)
[2021-03-07 09:56] VITALS: RESP 18
--- NOTE | 2021-03-07 10:01 | P.PCN ---
Date of Procedure: 03/07/21 Description of Procedure: Brief history: Patient is a pleasant 55-year-old male presenting for outpatient esophagogastroduodenoscopy and colonoscopy for evaluation of heartburn and abnormal weight loss. Patient had been seen in the clinic reporting 40 pounds weight loss in the past year and a half. He reported decreased oral intake and association with depression. He denies any abdominal pain. Bowel movements generally daily. He does have a history of peptic ulcer disease and heartburn. Last EGD and colonoscopy in 05/2015 with findings of small hiatal hernia, mild gastritis and mild diverticulosis. Procedure performed: Esophagogastroduodenoscopy with biopsy Colonoscopy with polypectomy Estimated blood loss: Minimal. Preoperative diagnosis: Heartburn, abnormal weight loss, history of peptic ulcer disease, last colonoscopy 2014, previously had reported family history of colon cancer in a first-degree family member. Anesthesia: MAC Procedure: After informed consent was obtained from the patient was brought into the endoscopy unit and IV sedation was administered by anesthesia under continuous monitoring. Initially upper endoscopy was done. The Olympus GF 190 video endoscope was inserted into the mouth and esophagus intubated without any difficulty and was gradually advanced into the stomach and duodenum and carefully examined. The bulb and second part of the duodenum appeared normal, with biopsies taken. The scope was then withdrawn into the stomach adequately insufflated with air and upon careful examination the antrum and body, cardia and fundus was significant for some antral deformity previously noted on prior EGD likely from history of peptic ulcer disease and some mild antral gastritis with biopsies of antrum and body taken. The scope was then withdrawn into the esophagus. The GE junction was located at 40 cm to the incisors, with a small 1 cm hiatal hernia noted. It appeared regular with no erythema erosions or ulcerations. Rest of the esophagus appeared normal. Patient tolerated the procedure well. At this time the patient continued to remain sedation. Initial digital rectal examination was normal. Olympus CF 190 video colonoscope was then inserted into the rectum and gradually advanced to the cecum without any difficulty. Careful examination was performed as the scope was gradually being withdrawn. The prep was excellent. The cecum, ascending colon, transverse colon, descending colon, sigmoid colon and rectum appeared normal. 2 diminutive 2 mm polyps removed from the transverse colon with cold forcep polypectomy. A small diverticula noted in the sigmoid. Retroflexion was performed in the rectum and no lesions were noted, low-grade internal hemorrhoids seen. Patient tolerated the procedure well. Impression: 1. Mild gastritis. Mild antral deformity, previously noted on EGD and likely from history of peptic ulcer disease. Small hiatal hernia. Biopsies of the duodenum, antrum and body. 2. 2 diminutive transverse polyps removed with cold forceps. Mild sigmoid diverticulosis. Internal hemorrhoids. Recommendations: Findings of this examination were discussed with the patient. Okay to resume diet. Okay to resume medications. Await pathology from biopsies and polypectomy. Follow-up in the GI clinic as scheduled. Continue current medical management. Repeat colonoscopy in 7 years pending pathology from polypectomy, the patient does have a personal family history of colon cancer in a first-deg ree relative would recommend 5 years.
[2021-03-07 10:09] VITALS: BP 99/56; PULSE 78
== END 2021-03-07 10:43 | disposition home or self-care (01) ==
LOC: ORWHC2ENDO 08:37
PROVIDERS: ATTEND Internal Medicine
DX: K63.5 Polyp of colon (principal); K29.70 Gastritis, unspecified, without bleeding; K44.9 Diaphragmatic hernia without obstruction or gangrene; K57.30 Diverticulosis of large intestine without perforation or abscess without bleeding; K64.8 Other hemorrhoids; R63.4 Abnormal weight loss; Z87.11 Personal history of peptic ulcer disease; F32.9 Major depressive disorder, single episode, unspecified; Z80.0 Family history of malignant neoplasm of digestive organs; Z98.890 Other specified postprocedural states; I10 Essential (primary) hypertension; F17.210 Nicotine dependence, cigarettes, uncomplicated; M19.90 Unspecified osteoarthritis, unspecified site; Z87.19 Personal history of other diseases of the digestive system; K21.9 Gastro-esophageal reflux disease without esophagitis; Z79.1 Long term (current) use of non-steroidal anti-inflammatories (NSAID); Z79.899 Other long term (current) drug therapy
CPT/HCPCS: 88305; 45380; 43239; J2001; J2704

== ENCOUNTER → 2022-02-28 | Outpatient (CLI) | payer MEDICARE, OTHER ==
--- NOTE | 2022-03-02 14:35 | CT ---
EXAMINATION TYPE: CT chest wo con CT DLP: 180.4 mGycm, Automated exposure control for dose reduction was used. DATE OF EXAM: 02/28/2022 6:53 PM COMPARISON: CT chest 08/30/2020. CLINICAL INDICATION:Male 56 years old with history of ABNORMAL WEIGHT LOSS, COPD, TOBACCO USE, Abn. w eight loss, left side chest heaviness, COPD TECHNIQUE: Multiple axial images were obtained through the chest without IV contrast. Lack of IV or o ral contrast limits evaluation of solid and hollow organ viscera. FINDINGS: LUNGS/ PLEURA: No evidence of focal consolidation, pneumothorax or pleural effusion. AIRWAY: Patent and unremarkable.. HEART: Size within normal limits. Mild atherosclerosis of the coronary arteries. MEDIASTINUM: No gross evidence of adenopathy. VASCULATURE: No aortic aneurysm. MUSCULOSKELETAL: No acute osseous abnormalities. Right rib #9 subacute fracture. SOFT TISSUES/LYMPH NODES: Unremarkable. LOWER NECK: No significant findings. UPPER ABDOMEN: Surgical clips are seen in the upper abdomen with surgical changes in the aorta and th e anterior abdominal wall. No evidence of mass within the visualized abdomen. IMPRESSION: 1. No evidence of acute process or mass. 2. Subacute left rib 9 fracture. 3. Mild coronary artery atherosclerosis.
== END | disposition home or self-care (01) ==
LOC: RADCTMAIN 18:34
PROVIDERS: ATTEND Family Medicine
DX: I25.10 Atherosclerotic heart disease of native coronary artery without angina pectoris (principal); M84.48XA Pathological fracture, other site, initial encounter for fracture
CPT/HCPCS: 71250

== ENCOUNTER 2023-02-21 12:49 | Emergency (ER) | payer MEDICARE, OTHER ==
[2023-02-21 13:00] VITALS: RESP 18
[2023-02-21] MEDS ORDERED: ACET/COD 300 MG/30 MG STARTER PACK 6 TAB BTL PO STA (14:20)
--- NOTE | 2023-02-21 14:29 | ED ---
General Adult HPI - General Chief complaint: ENT Stated complaint: ENT Time Seen by Provider: 02/21/23 14:06 Source: patient, RN notes reviewed Mode of arrival: ambulatory Limitations: no limitations - History of Present Illness Initial comments: Patient is a pleasant 57-year-old male presenting to the emergency department with concern for left ear pain. Patient has had intermittent symptoms for months clean sinus problems and congestion. No hearing loss. Patient admits to smoking. Patient questions if the air quality is affecting his ear and co ngestion. No fever. No trauma. - Related Data Home Medications Medication Instructions Recorded Confirmed amLODIPine [Norvasc] 10 mg PO DAILY 08/10/14 03/07/21 Atorvastatin [Lipitor] 80 mg PO DAILY 03/02/15 03/07/21 Primidone [Mysoline] 50 mg PO BID 09/15/17 03/07/21 busPIRone HCl [Buspar] 5 mg PO BID 07/11/19 03/07/21 Albuterol Inhaler [Ventolin Hfa 2 puff INHALATION DIRECTED PRN 03/04/21 03/07/21 Inhaler] Benazepril HCl 20 mg PO DAILY 03/04/21 03/07/21 Cetirizine HCl 10 mg PO DAILY 03/04/21 03/07/21 Cyclobenzaprine [Flexeril] 5 mg PO HS PRN 03/04/21 03/07/21 Folic Acid 1 mg PO DAILY 03/04/21 03/07/21 Ibuprofen [Advil] 400 mg PO HS PRN 03/04/21 03/07/21 Topiramate [Topamax] 25 mg PO DAILY 03/04/21 03/07/21 Previous Rx's Medication Instructions Recorded Omeprazole 40 mg PO AC-BRKFST #30 cap 03/07/15 Albuterol Sulfate [Albuterol 2 puff INHALATION Q6H PRN #8.5 gm 02/21/23 Sulfate Hfa] Amoxicillin 500 mg PO Q8H #30 capsule 02/21/23 Allergies Allergy/AdvReac Type Severity Reaction Status Date / Time No Known Allergies Allergy Verified 02/21/23 13:00 Review of Systems ROS Statement: Those systems with pertinent positive or pertinent negative responses have been documented in the HPI. ROS Other: All systems not noted in ROS Statement are negative. Constitutional: Denies: fever ENT: Reports: as per HPI, ear pain, congestion. Denies: hearing loss Respiratory: Denies: cough, dyspnea Cardiovascular: Denies: chest pain Endocrine: Denies: fatigue Gastrointestinal: Denies: abdominal pain Genitourinary: Denies: dysuria Past Medical History Past Medical History: Asthma, Chest Pain / Angina, COPD, GERD/Reflux, GI Bleed, Hearing Disorder / Deafness, Hyperlipidemia, Hypertension, Musculoskeletal Disorder, Neurologic Disorder, Osteoarthritis (OA), Prostate Disorder, Vascular Disorder Additional Past Medical History / Comment(s): PVD. , ASHD. , Hx of Stomach ulcer and GI bleed (LOST 6 UNITS BLOOD)., Chronic Back Pain, HERNIATED & BULGING DISCS, PINCHED CERVICAL NERVE., STABLE PROTRUSION T7. RT KNEE PAIN, TREMORS ARMS, OCC NUMBNESS/TINGLING LT ARM & LEFT FOOT. , FREQ [employer]ORSES., PT STATES MRI SHOWED 30 LESIONS ON BRAIN., EMPHYSEMA., DIARRHEA-STATES HE DOESNT EAT VERY WELL-WILL GO 2-3 DAYS WITHOUT EATING DUE TO STRESS/ANXIETY., STATES SORES AT RECTAL AREA AND BUTTOCKS. History of Any Multi-Drug Resistant Organisms: None Reported Past Surgical History: Heart Catheterization, Hernia Repair Additional Past Surgical History / Comment(s): Aortogram 08/17/14, Aortobifem bypass 09/2014, bilateral inguinal hernia repairs. LT THUMB SURG. Past Anesthesia/Blood Transfusion Reactions: No Reported Reaction Additional Past Anesthesia/Blood Transfusion Reaction / Comment(s): HX OF BLOOD TRANSFUSIONS -NO REACTION Past Psychological History: Anxiety, Depression Smoking Status: Heavy tobacco smoker Past Alcohol Use History: None Reported Past Drug Use History: Marijuana - Past Family History Mother Family Medical History: Myocardial Infarction (PR) Additional Family Medical History / Comment(s): AT 52 YRS OLD OF PR Father Family Medical History: Cancer General Exam Limitations: no limitations General appearance: alert, in no apparent distress Head exam: Present: normocephalic Eye exam: Present: normal appearance, PERRL ENT exam: Present: normal oropharynx, other (L TM With fluid behind it. Mastoid without swelling or erythema or warmth.) Neck exam: Present: normal inspection Respiratory exam: Present: normal lung sounds bilaterally Cardiovascular Exam: Present: regular rate, normal rhythm GI/Abdominal exam: Present: soft. Absent: tenderness Extremities exam: Present: normal inspection Neurological exam: Present: alert, CN II-XII intact. Absent: motor sensory deficit Psychiatric exam: Present: normal affect, normal mood Skin exam: Present: normal color Course Vital Signs 02/21/23 12:56 Temperature 98.1 F Pulse Rate 79 Respiratory 18 Rate Blood Pressure 110/76 O2 Sat by Pulse 99 Oximetry Medical Decision Making - Medical Decision Making Was pt. sent in by a medical professional or institution ([facility], [employer], urgent care, hospital, or [facility]...) When possible be specific @ -No Did you speak to anyone other than the patient for history (EMS, parent, family, police, friend...)? What history was obtained from this source @ -No Did you review nursing and triage notes (agree or disagree)? Why? @ -I reviewed and agree with nursing and triage notes Were old charts reviewed (outside hosp., previous admission, EMS record, old EKG, old radiological studies, urgent care reports/EKG's, [facility] records)? Report findings @ -No old charts were reviewed Differential Diagnosis (chest pain, altered mental status, abdominal pain women, abdominal pain men, vaginal bleeding, weakness, fever, dyspnea, syncope, headache, dizziness, GI bleed, back pain, seizure, CVA, palpatations, mental health)? @ -not applicable EKG interpreted by me (3pts min.). @ -As above X-rays interpreted by me (1pt min.). @ -None done CT interpreted by me (1pt min.). @ -None done U/S interpreted by me (1pt. min.). @ -None done What testing was considered but not performed or refused? (CT, X-rays, U/S, labs)? Why? @ -None What meds were considered but not given or refused? Why? @ -Patient requests refill of his albuterol Did you discuss the management of the patient with other professionals (professionals i.e. [facility], [employer], lab, RT, psych nurse, social services manager, stucco laborer, teacher, court officer, clinical case manager)? Give summary @ -No Was smoking cessation discussed for >3mins.? @ -No Was critical care preformed (if so, how long)? @ -No Were there social determinants of health that impacted care today? How? (Homelessness, low income, unemployed, alcoholism, drug addiction, transportation, low edu. Level, literacy, decrease access to med. care, retirement, rehab)? @ -No Was there de-escalation of care discussed even if they declined (Discuss DNR or withdrawal of care, Hospice)? DNR status @ -No What co-morbidities impacted this encounter? (DM, HTN, Smoking, COPD, CAD, Cancer, CVA, ARF, Chemo, Hep., AIDS, mental health diagnosis, sleep apnea, morbid obesity)? @ -None Was patient admitted / discharged? Hospital course, mention meds given and route, prescriptions, significant lab abnormalities, going to OR and other pertinent info. @ -Patient reevaluated and updated. Patient be discharged with antibiotics for fluid behind his ear with recommended follow-up with ENT. Patient will be provided with number. Undiagnosed new problem with uncertain prognosis? @ -No Drug Therapy requiring intensive monitoring for toxicity (Heparin, Nitro, Insulin, Cardizem)? @ -No Were any procedures done? @ -No Diagnosis/symptom? @ -Otalgia Acute, or Chronic, or Acute on Chronic? @ -Acute Uncomplicated (without systemic symptoms) or Complicated (systemic symptoms)? @ -default Side effects of treatment? @ -No Exacerbation, Progression, or Severe Exacerbation? @ -No Poses a threat to life or bodily function? How? (Chest pain, [place], PR, pneumonia, PE, COPD, DKA, ARF, appy, cholecystitis, CVA, Diverticulitis, Homicidal, Suicidal, threat to staff... and all critical care pts) @ -No Disposition Clinical Impression: Otalgia Disposition: HOME SELF-CARE Condition: Stable Instructions (If sedation given, give patient instructions): Earache (ED) Additional Instructions: Please follow-up with ENT, number provided. Prescription sent to pharmacy. Return for increased pain, hearing loss, worsening or changing symptoms or other concerns. Please use [id number] antihistamine such as Claritin. Prescriptions: Albuterol Sulfate [Albuterol Sulfate Hfa] 2 puff INHALATION Q6H PRN #8.5 gm PRN Reason: Shortness Of Breath Amoxicillin 500 mg PO Q8H #30 capsule Is patient prescribed a controlled substance at d/c from ED?: No Referrals: Ivon Lo MD [Primary Care Provider] - 1-2 days Jayden Boone DO [Doctor of Osteopathic Medicine] - 1-2 days Time of Disposition: 14:29
[2023-02-21 14:39] VITALS: BP 137/82; PULSE 63; TEMP 98
== END 2023-02-21 14:42 | disposition home or self-care (01) ==
LOC: EC 12:49
DX: H92.02 Otalgia, left ear (principal); J43.9 Emphysema, unspecified; E78.5 Hyperlipidemia, unspecified; I10 Essential (primary) hypertension; M19.90 Unspecified osteoarthritis, unspecified site; F41.9 Anxiety disorder, unspecified; F32.A Depression, unspecified; F17.200 Nicotine dependence, unspecified, uncomplicated; F12.90 Cannabis use, unspecified, uncomplicated; Z79.899 Other long term (current) drug therapy
CPT/HCPCS: 99283

== ENCOUNTER → 2023-05-05 | Outpatient (CLI) | payer MEDICARE, OTHER ==
[2023-05-05 15:38] LABS: ALT 18 U/L (10-49); AST 22 U/L (14-35); Chol/HDL Ratio 2.72 Ratio; LDL Cholesterol,Calculated 61.3 mg/dL (0.0-131.0); VLDL Calculation 16.54 mg/dL (5.00-40.00)
== END | disposition home or self-care (01) ==
LOC: LABWHC1 11:33
PROVIDERS: ATTEND Internal Medicine Interventional Cardiology
DX: E78.2 Mixed hyperlipidemia (principal)
CPT/HCPCS: 36415; 80061; 84450; 84460

== ENCOUNTER 2023-06-25 10:56 | Emergency (ER) | payer MEDICARE, OTHER ==
--- NOTE | 2023-06-25 12:55 | ED ---
Abdominal Pain HPI - General Source: patient, RN notes reviewed Mode of arrival: ambulatory Limitations: no limitations <Karen Rangel - Last Filed: 06/25/23 12:54> <Fernando Valdez - Last Filed: 06/25/23 14:17> - General Chief Complaint: Abdominal Pain Stated Complaint: Poss broken ribs Time Seen by Provider: 06/25/23 12:30 - History of Present Illness Initial Comments: This is a 57 year old male who presents to the emergency department for pain over the right rib cage. States that he was doing heavy lifting and working on his car yesterday, and felt a pop over his right rib cage. He does report a history of an umbilical hernia with mesh repair, but is more so concerned about a broken rib based on the location of his pain. (Karen Rangel) 57-year-old male presents to the ED with a chief complaint of abdominal pain. Patient states that he was working on his car yesterday and was holding a tire when he all of a sudden heard a pop and felt pain to his right upper abdomen. States that he is concerned that he broke a rib. Notes pain of this area worse with movement and especially deep breath. Denies shortness of breath. No chest pain. No other injuries at this time. No other complaints. (Fernando Valdez) - Related Data Home Medications Medication Instructions Recorded Confirmed amLODIPine [Norvasc] 10 mg PO DAILY 08/10/14 03/07/21 Atorvastatin [Lipitor] 80 mg PO DAILY 03/02/15 03/07/21 Primidone [Mysoline] 50 mg PO BID 09/15/17 03/07/21 busPIRone HCl [Buspar] 5 mg PO BID 07/11/19 03/07/21 Albuterol Inhaler [Ventolin Hfa 2 puff INHALATION DIRECTED PRN 03/04/21 03/07/21 Inhaler] Benazepril HCl 20 mg PO DAILY 03/04/21 03/07/21 Cetirizine HCl 10 mg PO DAILY 03/04/21 03/07/21 Cyclobenzaprine [Flexeril] 5 mg PO HS PRN 03/04/21 03/07/21 Folic Acid 1 mg PO DAILY 03/04/21 03/07/21 Ibuprofen [Advil] 400 mg PO HS PRN 03/04/21 03/07/21 Topiramate [Topamax] 25 mg PO DAILY 03/04/21 03/07/21 Previous Rx's Medication Instructions Recorded Omeprazole 40 mg PO AC-BRKFST #30 cap 03/07/15 Albuterol Sulfate [Albuterol 2 puff INHALATION Q6H PRN #8.5 gm 02/21/23 Sulfate Hfa] Amoxicillin 500 mg PO Q8H #30 capsule 02/21/23 Acetaminophen Tab [Tylenol] 650 mg PO Q6H #30 tab 06/25/23 Ibuprofen [Motrin] 600 mg PO Q8HR PRN #30 tab 06/25/23 Allergies Allergy/AdvReac Type Severity Reaction Status Date / Time No Known Allergies Allergy Verified 06/25/23 11:49 Review of Systems ROS Other: All systems not noted in ROS Statement are negative. <Karen Rangel - Last Filed: 06/25/23 12:54> ROS Other: All systems not noted in ROS Statement are negative. <Fernando Valdez - Last Filed: 06/25/23 14:17> ROS Statement: Those systems with pertinent positive or pertinent negative responses have been documented in the HPI. Past Medical History Past Medical History: Asthma, Chest Pain / Angina, COPD, GERD/Reflux, GI Bleed, Hearing Disorder / Deafness, Hyperlipidemia, Hypertension, Musculoskeletal Disorder, Neurologic Disorder, Osteoarthritis (OA), Prostate Disorder, Vascular Disorder Additional Past Medical History / Comment(s): PVD. , ASHD. , Hx of Stomach ulcer and GI bleed (LOST 6 UNITS BLOOD)., Chronic Back Pain, HERNIATED & BULGING DISCS, PINCHED CERVICAL NERVE., STABLE PROTRUSION T7. RT KNEE PAIN, TREMORS ARMS, OCC NUMBNESS/TINGLING LT ARM & LEFT FOOT. , FREQ [employer]., PT STATES MRI SHOWED 30 LESIONS ON BRAIN., EMPHYSEMA., DIARRHEA-STATES HE DOESNT EAT VERY WELL-WILL GO 2-3 DAYS WITHOUT EATING DUE TO STRESS/ANXIETY., STATES SORES AT RECTAL AREA AND BUTTOCKS. History of Any Multi-Drug Resistant Organisms: None Reported Past Surgical History: Heart Catheterization, Hernia Repair Additional Past Surgical History / Comment(s): Aortogram 08/17/14, Aortobifem bypass 09/2014, bilateral inguinal hernia repairs. LT THUMB SURG. Past Anesthesia/Blood Transfusion Reactions: No Reported Reaction Additional Past Anesthesia/Blood Transfusion Reaction / Comment(s): HX OF BLOOD TRANSFUSIONS -NO REACTION Past Psychological History: Anxiety, Depression Smoking Status: Heavy tobacco smoker Past Alcohol Use History: None Reported Past Drug Use History: Marijuana - Past Family History Mother Family Medical History: Myocardial Infarction ([place]) Additional Family Medical History / Comment(s): AT 52 YRS OLD OF [place] Father Family Medical History: Cancer <Karen Rangel - Last Filed: 06/25/23 12:54> General Exam Limitations: no limitations <Karen Rangel - Last Filed: 06/25/23 12:54> Limitations: no limitations General appearance: alert, in no apparent distress Head exam: Present: atraumatic, normocephalic ENT exam: Present: mucous membranes moist Neck exam: Present: normal inspection Respiratory exam: Present: wheezes (Bilateral), other (Reproducible tenderness to palpation of the right lower chest wall. No crepitus, step-off, or obvious deformity.) Cardiovascular Exam: Present: regular rate, normal rhythm Neurological exam: Present: alert, oriented X3 Skin exam: Present: warm, dry <Fernando Valdez - Last Filed: 06/25/23 14:17> - General Exam Comments Initial Comments: Visual Physical Exam Vital signs reviewed General: Well-appearing, nontoxic, no acute distress. Head: Normocephalic, atraumatic Eyes: PERRLA, EOMI ENT: Airway patent Chest: Nonlabored breathing Skin: No visual rash, normal skin tone Neuro: Alert and oriented 3 Musculoskeletal: No gross abnormalities I performed the QuickNote portion of this chart. Signed Karen Rangel PA-C. (Karen Rangel) Course Vital Signs 06/25/23 06/25/23 11:49 12:54 Temperature 98.7 F Pulse Rate 81 76 Respiratory 16 Rate Blood Pressure 103/70 127/82 O2 Sat by Pulse 99 99 Oximetry Medical Decision Making - Lab Data Result diagrams: 06/25/23 12:54 06/25/23 12:54 <Fernando Valdez - Last Filed: 06/25/23 14:17> - Medical Decision Making Was pt. sent in by a medical professional or institution (OSCAR Molina, [employer], urgent care, hospital, or custodial...) When possible be specific @ -No Did you speak to anyone other than the patient for history (EMS, parent, family, police, friend...)? What history was obtained from this source @ -No Did you review nursing and triage notes (agree or disagree)? Why? @ -I reviewed and agree with nursing and triage notes Were old charts reviewed (outside hosp., previous admission, EMS record, old EKG, old radiological studies, urgent care reports/EKG's, custodial records)? Report findings @ -No old charts were reviewed Differential Diagnosis (chest pain, altered mental status, abdominal pain women, abdominal pain men, vaginal bleeding, weakness, fever, dyspnea, syncope, headache, dizziness, GI bleed, back pain, seizure, CVA, palpatations, mental health, musculoskeletal)? @ -Differential Chest Pain: Stable Angina, Unstable Angina, STEMI, NSTEMI Aortic Dissection, Pneumothorax, Musculoskeletal, Esophageal Spasm GERD, Cholecystitis, Pancreatitis, Zoster, this is not meant to be an all-inclusive list. EKG interpreted by me (3pts min.). @ -As above X-rays interpreted by me (1pt min.). @ -KUB and rib x-ray interpreted by me showing no acute findings are did reveal old eighth rib fracture. CT interpreted by me (1pt min.). @ -None done U/S interpreted by me (1pt. min.). @ -None done What testing was considered but not performed or refused? (CT, X-rays, U/S, labs)? Why? @ -None What meds were considered but not given or refused? Why? @ -None Did you discuss the management of the patient with other professionals (pr ofessionals i.e. OSCRA Molina, [employer]OUNT[employer] CLERK, lab, RT, psych nurse, social services specialist, kick boxer, teacher, dental officer, pillowcase turner)? Give summary @ -No Was smoking cessation discussed for >3mins.? @ -No Was critical care preformed (if so, how long)? @ -No Were there social determinants of health that impacted care today? How? (Homelessness, low income, unemployed, alcoholism, drug addiction, transport ation, low edu. Level, literacy, decrease access to med. care, prison, rehab)? @ -No Was there de-escalation of care discussed even if they declined (Discuss DNR or withdrawal of care, Hospice)? DNR status @ -No What co-morbidities impacted this encounter? (DM, HTN, Smoking, COPD, CAD, Cancer, CVA, ARF, Chemo, Hep., AIDS, mental health diagnosis, sleep apnea, morbid obesity)? @ -None Was patient admitted / discharged? Hospital course, mention meds given and route, prescriptions, significant lab abnormalities, going to OR and other pertinent info. @ -Discharge 57-year-old male presenting to the ED with concerns of a broken rib after hearing a pop while carrying a heavy tire yesterday. KUB and rib x-ray revealed no acute process. In terms likely musculoskeletal in nature. Patient discharged home with incentive spirometer and prescription for Motrin/Tylenol. Discharged home in stable condition. Discussed return precautions with patient who verbalizes agreement. Undiagnosed new problem with uncertain prognosis? @ -No Drug Therapy requiring intensive monitoring for toxicity (Heparin, Nitro, Insu rebecca, Cardizem)? @ -No Were any procedures done? @ -No Diagnosis/symptom? @ -Costochondritis Acute, or Chronic, or Acute on Chronic? @ -Acute Uncomplicated (without systemic symptoms) or Complicated (systemic symptoms)? @ -Uncomplicated Side effects of treatment? @ -No Exacerbation, Progression, or Severe Exacerbation? @ -No Poses a threat to life or bodily function? How? (Chest pain, [place], [place], pneumonia, PE, COPD, DKA, ARF, appy, cholecystitis, CVA, Diverticulitis, Homicidal, Suicidal, threat to staff... and all critical care pts) @ -No (Fernando Valdez) - Lab Data Lab Results 06/25/23 06/25/23 06/25/23 Range/Units 12:54 12:54 12:54 WBC 10.1 (3.8-10.6) k/uL RBC 4.49 (4.30-5.90) m/uL Hgb 14.7 (13.0-17.5) gm/dL Hct 43.4 (39.0-53.0) % MCV 96.6 (80.0-100.0) fL MCH 32.8 (25.0-35.0) pg MCHC 34.0 (31.0-37.0) g/dL RDW 12.9 (11.5-15.5) % Plt Count 303 (150-450) k/uL MPV 7.7 Neutrophils % 56 % Lymphocytes % 29 % Monocytes % 7 % Eosinophils % 5 % Basophils % 0 % Neutrophils # 5.6 (1.3-7.7) k/uL Lymphocytes # 2.9 (1.0-4.8) k/uL Monocytes # 0.7 (0-1.0) k/uL Eosinophils # 0.5 (0-0.7) k/uL Basophils # 0.0 (0-0.2) k/uL Sodium 140 (137-145) mmol/L Potassium 4.6 (3.5-5.1) mmol/L Chloride 108 H (98-107) mmol/L Carbon Dioxide 22 (22-30) mmol/L Anion Gap 10 mmol/L BUN 14 (9-20) mg/dL Creatinine 1.22 (0.66-1.25) mg/dL Est GFR (CKD-EPI)AfAm 75 (>60 ml/min/1.73 sqM) Est GFR (CKD-EPI)NonAf 65 (>60 ml/min/1.73 sqM) Glucose 95 (74-99) mg/dL Plasma Lactic Acid Bravo 1.4 (0.7-2.0) mmol/L Calcium 9.2 (8.4-10.2) mg/dL Total Bilirubin 0.4 (0.2-1.3) mg/dL AST 26 (17-59) U/L ALT 19 (4-49) U/L Alkaline Phosphatase 94 (38-126) U/L Total Protein 6.9 (6.3-8.2) g/dL Albumin 4.2 (3.5-5.0) g/dL Disposition <Karen Rangel - Last Filed: 06/25/23 12:54> Is patient prescribed a controlled substance at d/c from ED?: No Time of Disposition: 14:11 <Fernando Valdez - Last Filed: 06/25/23 14:17> Clinical Impression: Costochondritis Disposition: HOME SELF-CARE Condition: Good Instructions (If sedation given, give patient instructions): Costochondritis (ED) Additional Instructions: Please return to the Emergency Department if symptoms worsen or any other concerns. Prescriptions: Ibuprofen [Motrin] 600 mg PO Q8HR PRN #30 tab PRN Reason: Pain Acetaminophen Tab [Tylenol] 650 mg PO Q6H #30 tab Referrals: Ivon Lo MD [Primary Care Provider] - 1-2 days
--- NOTE | 2023-06-25 13:12 | XR ---
EXAMINATION TYPE: XR ribs RT w pa chest xray DATE OF EXAM: 06/25/2023 COMPARISON: 07/11/2019 HISTORY: 57-year-old male right-sided abdominal and chest pain TECHNIQUE: 5 views FINDINGS: Heart normal size. Aorta and pulmonary vasculature within normal limits. Mild hyperinflation and inte rstitial prominence. No consolidation or pleural effusion. There is a subacute to chronic fracture involving the right lateral eighth rib. No additional acute o r healing fracture is identified. IMPRESSION: Subacute versus chronic fracture right lateral eighth rib. Clinically correlate. There is underlying COPD without additional acute cardiopulmonary process.
[2023-06-25 13:15] LABS: Basophils % (A) 0 %; Eosinophils # (A) 0.5 k/uL (0-0.7); Eosinophils % (A) 5 %; HCT 43.4 % (39.0-53.0); HGB 14.7 gm/dL (13.0-17.5); Lymphocytes # (A) 2.9 k/uL (1.0-4.8); Lymphocytes % (A) 29 %; MCH 32.8 pg (25.0-35.0); MCV 96.6 fL (80.0-100.0); Mean Platelet Volume 7.7; Monocytes # (A) 0.7 k/uL (0-1.0); Monocytes % (A) 7 %; Neutrophils # (A) 5.6 k/uL (1.3-7.7); Neutrophils % (A) 56 %; Platelet Count 303 k/uL (150-450); RBC 4.49 m/uL (4.30-5.90); RDW 12.9 % (11.5-15.5); WBC 10.1 k/uL (3.8-10.6)
--- NOTE | 2023-06-25 13:15 | XR ---
EXAMINATION TYPE: XR KUB DATE OF EXAM: 06/25/2023 COMPARISON: NONE HISTORY: Pain TECHNIQUE: Single supine KUB image of the abdomen is obtained FINDINGS: Small bowel demonstrates no evidence for dilatation or air fluid levels. Gas and fecal material is seen in non-distended colon. No convincing evidence for pneumoperitoneum. No unusual calcifications. The lung bases are clear. The osseous structures are intact. Herniorrhaphy changes noted. IMPRESSION: 1. Overall nonobstructive bowel gas pattern.
[2023-06-25 13:26] LABS: Potassium 4.6 mmol/L (3.5-5.1)
[2023-06-25 13:29] LABS: ALT 19 U/L (4-49); AST 26 U/L (17-59); African American GFR (CKD) 75 (>60 ml/min/1.73 sqM); Albumin 4.2 g/dL (3.5-5.0); Alkaline Phosphatase 94 U/L (38-126); Anion Gap 10 mmol/L; Blood Urea Nitrogen 14 mg/dL (9-20); Calcium 9.2 mg/dL (8.4-10.2); Carbon Dioxide 22 mmol/L (22-30); Chloride 108 mmol/L (98-107); Non-African American GFR(CKD) 65 (>60 ml/min/1.73 sqM); Sodium 140 mmol/L (137-145); Total Bilirubin 0.4 mg/dL (0.2-1.3); Total Protein 6.9 g/dL (6.3-8.2)
[2023-06-25] MEDS ORDERED: KETOROLAC 15 MG/ML 1 ML VIAL IM STA (13:33)
[2023-06-25 13:35] LABS: Glucose 95 mg/dL (74-99)
[2023-06-25 14:59] VITALS: BP 120/83; PULSE 77; RESP 20; TEMP 98.3
== END 2023-06-25 14:48 | disposition home or self-care (01) ==
LOC: EC 10:56
DX: M94.0 Chondrocostal junction syndrome [Tietze] (principal); I10 Essential (primary) hypertension; J44.9 Chronic obstructive pulmonary disease, unspecified; E78.5 Hyperlipidemia, unspecified; F32.A Depression, unspecified; F41.9 Anxiety disorder, unspecified; F17.200 Nicotine dependence, unspecified, uncomplicated; F12.90 Cannabis use, unspecified, uncomplicated; X50.0XXA Overexertion from strenuous movement or load, initial encounter; Z79.899 Other long term (current) drug therapy
CPT/HCPCS: 36415; 80053; 83605; 85025; 71101; 74018; 99284; 96372; J1885

== ENCOUNTER → 2023-07-09 | Outpatient (CLI) | payer MEDICARE, OTHER ==
--- NOTE | 2023-07-09 12:44 | CTL ---
EXAMINATION TYPE: CT Low Dose Lung DATE OF EXAM ORDERED: 07/09/2023 HISTORY: Z12.2, Z87.891, F17.210. Lung cancer screening. Current smoker, [address] DLP: [address] CTDI: 1.72 mGy Automated exposure control for dose reduction was used. SCREENING VISIT: First screening visit COMPARISON: CT chest 02/28/2022, 08/29/2020 TECHNIQUE: Low dose computed tomography scan was performed through the chest at 1 mm thick sections a nd reconstructed images in multiple planes at 1 mm and [address] DIAGNOSTIC QUALITY: Satisfactory FINDINGS: LUNG NODULES: No clinically significant pulmonary nodule. LUNGS: COPD: Severity: None Fibrosis: Severity: None Lymph nodes: None Other findings: None RIGHT PLEURAL SPACE: Effusion: None Calcification: None Thickening: None Pneumothorax: None LEFT PLEURAL SPACE: Effusion: None Calcification: None Thickening: None Pneumothorax: None HEART: Heart Size: Normal Coronary Calcification: Small Pericardial Effusion: None OTHER FINDINGS: Upper abdomen: Postsurgical changes anterior abdominal wall with mesh clips identified. Bony thorax: Remote right ninth rib fracture. Supraclavicular region: None Other: None IMPRESSION: No clinically significant pulmonary nodule. CT LUNG RAD AND CT CHEST RECOMMENDATION: Lung-Rad 1 Negative: Continue annual screening with LDCT in 12 months. S Modifier (other clinically significant findings): None
== END | disposition home or self-care (01) ==
LOC: RADCTMAIN 11:53
PROVIDERS: ATTEND Family Medicine
DX: Z12.2 Encounter for screening for malignant neoplasm of respiratory organs (principal); F17.210 Nicotine dependence, cigarettes, uncomplicated
CPT/HCPCS: 71271

== ENCOUNTER → 2024-04-30 | Outpatient (CLI) | payer MEDICARE ==
--- NOTE | 2024-05-24 15:58 | MR ---
Site ID synapse default Patient Mendoza Mckinley G SR ID [id number] 1965 Age/Gender: 58Y, M Order # N/A Procedure MRI THORACIC W/O CONTRAST Date 04/30/2024 1:16:24 PM INDICATION: Patient age: Male; 58 year old; Reason for study: Mid back pain COMPARISON: MR T-spine/L-spine 12/23/2017. TECHNIQUE: Multi planar, multi sequence imaging was performed utilizing: T1-weighted, T2-weighted, an d turbo inversion recovery imaging of the thoracic spine. The patient was not given Gadolinium. FINDINGS: The thoracic vertebral bodies have preserved heights. No spondylolisthesis. Increased thoracic kyphos is when compared to prior exam. Type I Modic changes involving the T7-T8 endplates with type I Modic changes involving the T8-T9 and T9-T10 endplates. Corresponding STIR signal within the type I Modic. Right paracentral small disc protrusion with mild effacement of anterior thecal sac at T2-T3. Left paracentral small disc protrusion with mild effacement of the anterior thecal sac at T5-T6. Left paracentral small disc protrusion with mild effacement of the anterior thecal sac at T6-T7. Broad-based disc bulge with minimal effacement of anterior thecal sac at T8-T9. No significant neural foraminal stenosis at any thoracic level. Thoracic spinal cord appears unremarkable. Multilevel disc desiccation with disc height loss most pro nounced at T7-T8. IMPRESSION: 1. Mild multilevel degenerative disc disease. Small disc protrusions at T2-T3, T5-T6, and T6-T7 resu lting in mild central canal stenosis. No significant neural foraminal stenosis at any thoracic level. 2. Acute type I Modic changes at T8-T9 and T9-T10 endplates. 3. Increased thoracic kyphosis.
== END | disposition home or self-care (01) ==
LOC: RADMRIMAIN 13:44
PROVIDERS: ATTEND Psychiatry & Neurology Neurology
DX: R93.7 Abnormal findings on diagnostic imaging of other parts of musculoskeletal system (principal); M51.34 Other intervertebral disc degeneration, thoracic region; M40.294 Other kyphosis, thoracic region
CPT/HCPCS: 72146

== ENCOUNTER → 2024-05-11 | Outpatient (CLI) | payer MEDICARE, OTHER ==
[2024-05-12 09:12] LABS: ALT 19 U/L (10-49); AST 21 U/L (14-35); Chol/HDL Ratio 2.56 Ratio
== END | disposition home or self-care (01) ==
LOC: LABWHC1 16:28
PROVIDERS: ATTEND Internal Medicine Interventional Cardiology
DX: E78.2 Mixed hyperlipidemia (principal)
CPT/HCPCS: 36415; 80061; 84450; 84460

== ENCOUNTER → 2024-09-16 | Outpatient (CLI) | payer MEDICARE, OTHER ==
[2024-09-16 20:52] LABS: ALT 20 U/L (10-49); AST 20 U/L (14-35); Chol/HDL Ratio 2.55 Ratio; LDL Cholesterol,Calculated 55.7 mg/dL (0.0-131.0)
== END | disposition home or self-care (01) ==
LOC: LABWHC1 15:13
PROVIDERS: ATTEND Internal Medicine Interventional Cardiology
DX: E78.2 Mixed hyperlipidemia (principal)
CPT/HCPCS: 36415; 80061; 84450; 84460

== ENCOUNTER → 2025-01-13 | Outpatient (CLI) | payer MEDICARE, OTHER ==
[2025-01-14 02:24] LABS: ALT 23 U/L (10-49); AST 24 U/L (14-35); LDL Cholesterol,Calculated 59.7 mg/dL (0.0-131.0)
== END | disposition home or self-care (01) ==
LOC: LABWHC1 16:11
PROVIDERS: ATTEND Internal Medicine Interventional Cardiology
DX: E78.2 Mixed hyperlipidemia (principal)
CPT/HCPCS: 36415; 80061; 84450; 84460

== ENCOUNTER → 2025-03-12 | Outpatient (CLI) | payer MEDICARE, OTHER ==
--- NOTE | 2025-03-12 16:41 | MR ---
EXAMINATION TYPE: MR tspine/lspine wo con DATE OF EXAM: 03/12/2025 4:25 PM COMPARISON: MR thoracic spine 05/23/2024, MR T-spine/L-spine 12/23/2017 CLINICAL INDICATION: Male, 59 years old with history of M54.6 M54.59, pain and stiffness for many yea rs IV Contrast: None TECHNIQUE: Multiplanar, multisequence imaging of the thoracic spine is performed without IV contrast. FINDINGS: The thoracic vertebral bodies have preserved heights. No spondylolisthesis. Similar thoracic kyphosis from prior exam. Similar mild dextrocurvature of the thoracic spine. Type II Modic changes involving the T7-T8 endplates with type I Modic changes involving the T8-T9 and T9-T10 endplates. Schmorl's no de involving the superior endplate of the T11 vertebral body with increased STIR signal representing edema. Right paracentral small disc protrusion with mild effacement of anterior thecal sac at T2-T3 redemons trated. Left paracentral small disc protrusion with mild effacement of the anterior thecal sac at T5-T6 redem onstrated. Left paracentral small disc protrusion with mild effacement of the anterior thecal sac at T6-T7 redem onstrated. Broad-based disc bulge with minimal effacement of anterior thecal sac at T8-T9 redemonstrated. No significant neural foraminal stenosis at any thoracic level. Thoracic spinal cord appears unremarkable. Multilevel disc desiccation with disc height loss most pro nounced at T7-T8. IMPRESSION: 1. Similar mild multilevel degenerative disc disease from prior MRI. Small disc protrusions at T2-T3 , T5-T6, and T6-T7 resulting in mild central canal stenosis. No significant neural foraminal stenosis at any thoracic level. 2. Type I Modic changes at T8-T9 and T9-T10 endplates redemonstrated. 3. Acute Schmorl's node involving the superior endplate of the T11 vertebral body. 4. Increased thoracic kyphosis redemonstrated. TECHNIQUE: Multi planar, multi sequence imaging was performed of the lumbar spine without intravenou s contrast. FINDINGS: The lumbar vertebral bodies do have preserved heights and alignment. Lumbarization of the S1 vertebral body with rudimentary S1-S2 disc. Multilevel disc desiccation is present. The conus med ullaris and the distal spinal cord do appear unremarkable with regards to their signal intensity and morphology. T12-L1: No significant disc pathology is identified. The spinal canal and neural foramen are patent L1-L2: No significant disc pathology is identified. The spinal canal and neural foramen are patent. L2-L3: No significant disc pathology is identified. The spinal canal and neural foramen are patent. L3-L4: No significant disc pathology is identified. The spinal canal and neural foramen are patent. L4-L5: Broad-based disc bulge with ligamentum flavum buckling. No significant central canal stenosis. Bilateral facet arthropathy. [id number] left and moderate right neural foraminal stenosis. L5-S1: Broad-based disc bulge without significant effacement of the anterior thecal sac. No spinal ca nal stenosis. Bilateral facet arthropathy. Moderate bilateral neural foraminal stenosis. Other significant findings: Abdominal aortic bypass graft noted. IMPRESSION: 1. No definitive evidence for disc herniation or significant spinal canal stenosis. 2. Mild multilevel disc degeneration with associated osteoarthritic changes of the lower lumbar spin e. Overall similar to prior MRI 12/23/2017. [facility] ال[place], , 03/12/2025 4:39 PM
== END | disposition home or self-care (01) ==
LOC: RADMRIMAIN 15:00
PROVIDERS: ATTEND Orthopaedic Surgery Orthopaedic Surgery of the Spine
DX: M51.35 Other intervertebral disc degeneration, thoracolumbar region (principal)
CPT/HCPCS: 72146; 72148